=== PATIENT | female | born 1945 | race Caucasian/White ===

== ENCOUNTER 2023-03-12 06:27 | Day surgery (SDC) | payer OTHER ==
[2023-03-10 12:38] LABS: Albumin 4.4 g/dL (3.2-4.8); Alkaline Phosphatase 91 U/L (46-116); Anion Gap 8 (5-15); Blood Urea Nitrogen 14 mg/dL (9-23); Calcium 10.1 mg/dL (8.5-10.1); Carbon Dioxide 26 mmol/L (20-30); Chloride 110 mmol/L (98-107); Glucose 97 mg/dL (74-106); Potassium 3.7 mmol/L (3.5-5.1); Sodium 144 mmol/L (136-145)
[2023-03-10 12:39] LABS: Aspartate Aminotransferase 15 U/L (13-40); Total Protein 6.9 g/dL (5.7-8.2)
[2023-03-10 12:48] LABS: INR 0.98 (0.9-1.15); Partial Thromboplastin Time 26.7 SEC (24.5-34.5); Prothrombin Time 10.3 sec (9.3-11.8)
[2023-03-10 12:49] LABS: Basophils # (auto) 0.1 10 ^3/uL (0-0.2); Eosinophils # (auto) 0.2 10 ^3/uL (0-0.8); Eosinophils % (auto) 3.4 % (0.0-7.0); Hematocrit 40.3 % (36.0-46.0); Lymphocytes % (auto) 31.4 % (10.0-50.0); Mean Corpuscular Hgb Conc. 32.2 g/dL (32.0-36.0); Mean Corpuscular Volume 93.2 fL (80.0-100.0); Monocytes # (auto) 0.5 10 ^3/uL (0-1.3); Monocytes % (auto) 7.5 % (0.0-12.0); Neutrophils # (auto) 3.7 10 ^3/uL (1.6-8.6); Neutrophils % (auto) 56.7 % (37.0-80.0); Nucleated Red Blood Cells % 0.3 %; Red Blood Cells 4.32 10^6/uL (4.0-5.20); Red Cell Distribution Width 14.2 % (11.8-14.3); White Blood Cell 6.5 10^3/uL (4.4-10.8)
[2023-03-10 12:57] LABS: Alanine Aminotransferase < 9 U/L (7-40)
[2023-03-10 13:05] LABS: Bilirubin, Total 0.5 mg/dL (0.2-1.0)
[2023-03-10 13:34] LABS: Urine Bacteria FEW /hpf (None Seen); Urine Blood 2+ /uL (Negative); Urine Clarity HAZY (Clear); Urine Color Yellow (Yellow); Urine Hyaline Cast FEW /lpf (0 - 2); Urine Protein, UAD 1+ (Negative); Urine Specific Gravity 1.015 (1.001-1.035); Urine Urobilinogen Normal (Negative); Urine WBC 304 /hpf (0 - 5)
[~2023-03-12] VITALS: Ht 162.6 cm; Wt 68.9 kg
[~2023-03-12 06:27] MED LIST: CALC280T PO; CRAN600T OR; DULO60CA41 PO; FLUT110A IN; HYDR-4798 PO; LORA-1123 PO; MAGN200T12 PO; MIRA25TA OR; POLYSOL2 OP; RALO60TA14 PO; RIZA10TA12 PO; TOPI50TA53 PO
[2023-03-12] MEDS ORDERED: VANCOMYCIN HCL 1000 MG VL ONE (06:43)
[2023-03-12] MEDS ORDERED: BUPIVACAINE HCL 0.25% P/F 10 ML VIAL ONE (06:46)
[2023-03-12] MEDS ORDERED: LIDOCAINE W/ EPINEPHRINE 2% INJ 20ML VIAL ONE (06:46)
[2023-03-12] MEDS ORDERED: fentaNYL CITRATE 100 MCG/2 ML VL ONE (06:55)
[2023-03-12] MEDS ORDERED: CELECOXIB 100 MG CAP PO ONE (07:00)
[2023-03-12] MEDS ORDERED: GABAPENTIN 400 MG CAP PO ONE (07:00)
[2023-03-12] MEDS ORDERED: ACETAMINOPHEN IV 1000 MG/100ML (10MG/ML) IV ONE (07:00)
[2023-03-12] MEDS ORDERED: ceFAZolin 2 GM/D5W100ml 100 ML IV ONE (07:02)
[2023-03-12] MEDS ORDERED: CELECOXIB 100 MG CAP ONE (07:02)
[2023-03-12] MEDS ORDERED: GABAPENTIN 400 MG CAP ONE (07:02)
[2023-03-12] MEDS ORDERED: ACETAMINOPHEN IV 100 ML IV ONE (07:03)
[2023-03-12] MEDS ORDERED: DexAMETHasone SOD PHOS 10MG/1ML VIAL INJ ONE (07:16)
[2023-03-12] MEDS ORDERED: KETOROLAC TROMETH 30 MG/ML 1ML VIAL ONE (07:16)
[2023-03-12] MEDS ORDERED: ONDANSETRON HCL 4 MG/2 ML VIAL ONE (07:16)
[2023-03-12] MEDS ORDERED: LIDOCAINE 2% (LOCAL ANESTH.) PF 5ml SDV ONE (07:16)
[2023-03-12] MEDS ORDERED: GLYCOPYRROLATE 0.2 MG/ML 1ML VIAL ONE (07:16)
[2023-03-12 08:29] VITALS: TEMP 97.1; O2SAT 98
[2023-03-12] MEDS ORDERED: hydrALAZINE HCL 20 MG/ML VL IV PRN (08:45)
[2023-03-12] MEDS ORDERED: FLUMAZENIL 0.1 MG/ML INJ 10ML MDV IV PRN (08:45)
[2023-03-12] MEDS ORDERED: HYDROmorphone HCL 2 MG/ML VL/or syr IV PRN (08:45)
[2023-03-12] MEDS ORDERED: NALOXONE HCL 0.4 MG/ML VIAL IV PRN (08:45)
[2023-03-12] MEDS ORDERED: LABETALOL HCL 5 MG/ML 4ML SYRINGE IV PRN (08:45)
[2023-03-12] MEDS ORDERED: ONDANSETRON HCL 4 MG/2 ML VIAL IV PRN (08:45)
[2023-03-12] MEDS ORDERED: fentaNYL CITRATE 100 MCG/2 ML VL IV PRN (08:45)
[2023-03-12] MEDS ORDERED: oxyCODONE HCL 5MG TAB PO PRN (08:45)
[2023-03-12] MEDS ORDERED: ePHEDrine SULFATE 50 MG/ML AMP IV PRN (08:45)
[2023-03-12 09:09] VITALS: BP 135/58; PULSE 64; RESP 12; O2SAT 96
== END 2023-03-12 09:24 | disposition home or self-care (01) ==
LOC: SUR 06:27
PROVIDERS: ATTEND Anesthesiology Pain Medicine
DX: M48.062 Spinal stenosis, lumbar region with neurogenic claudication (principal); F41.9 Anxiety disorder, unspecified; F32.9 Major depressive disorder, single episode, unspecified; G89.29 Other chronic pain; Z98.891 History of uterine scar from previous surgery
CPT/HCPCS: 22869; 22870; 36415; 72100; 76000; 80053; 81001; 85025; 85610; 85730; 87086; C1821; J0131; J1100; J1885; J2001; J2405; J3010; J3370; J3490